=== PATIENT | male | born 1995 | race Caucasian/White ===

== ENCOUNTER 2025-01-29 10:04 | Emergency (ER) | payer SELFPAY ==
[~2025-01-29] VITALS: Ht 167.6 cm; Wt 77.1 kg
[2025-01-29 10:11] VITALS: O2SAT 100
[2025-01-29 10:52] LABS: BASOPHILS % 0.7 % (0.0-2.0); HEMATOCRIT. 48.4 % (42.0-52.0); HEMOGLOBIN. 16.3 g/dL (14.0-18.0); LYMPHOCYTES % 27.8 % (20.0-50.0); MEAN CORPUSCULAR HEMOGLOBIN 31.3 pg (28.0-32.0); MEAN CORPUSCULAR HGB CONC 33.7 g/dL (31.0-37.0); MEAN CORPUSCULAR VOLUME 92.9 fL (80.0-94.0); MEAN PLATELET VOLUME 8.6 fl (7.4-10.4); MONOCYTES % 6.5 % (2.0-8.0); PLATELET 236 x1000/uL (130-400); RED CELL DISTRIBUTION WIDTH 14.1 % (11.6-14.6); WHITE BLOOD COUNT 6.7 x1000/uL (4.5-11.0)
[2025-01-29 11:03] LABS: CHLORIDE 105 mEq/L (98-107); POTASSIUM 3.6 mEq/L (3.5-5.1); SODIUM 140 mEq/L (136-145)
[2025-01-29 11:04] LABS: CARBON DIOXIDE 24 mEq/L (21-32)
[2025-01-29 11:05] LABS: CALCIUM 8.8 mg/dL (8.7-10.4)
[2025-01-29 11:09] LABS: CREATININE 0.8 mg/dL (0.6-1.3); GLUCOSE 96 mg/dL (70-105); UREA NITROGEN BLOOD 5 mg/dL (9-23)
[2025-01-29 11:18] LABS: TROPONIN I HIGH SENSITIVITY < 4 ng/L (3.0-53)
[2025-01-29 11:43] VITALS: BP 120/78; PULSE 100; RESP 16; TEMP 36.8; O2SAT 100
== END 2025-01-29 11:38 | disposition home or self-care (01) ==
LOC: ER 10:04
DX: R07.89 Other chest pain (principal); Z98.890 Other specified postprocedural states
CPT/HCPCS: 36415; 71045; 80048; 84484; 85025; 93005; 99285